=== PATIENT | female | born 1955 | race African-American/Black ===

== ENCOUNTER 2017-08-13 13:32 | Emergency (ER) | payer OTHER ==
[~2017-08-13] VITALS: Ht 167.6 cm; Wt 123.0 kg
[2017-08-13] MEDS ORDERED: FUROSEMIDE 40MG/4ML VIAL IV STA (14:38)
[2017-08-13] MEDS ORDERED: NITROGLYCERIN OINT 1GM/INCH UDPKT TD STA (14:38)
[2017-08-13 16:22] LABS: BASOPHILS % 0.6 % (0.0-2.0); HEMATOCRIT. 41.2 % (36.0-48.0); LYMPHOCYTES % 31.3 % (20.0-50.0); MEAN CORPUSCULAR HEMOGLOBIN 27.9 pg (28.0-32.0); MEAN CORPUSCULAR VOLUME 82.4 fL (81.0-99.0); MONOCYTES % 5.6 % (2.0-8.0); NEUTROPHILS % 61.5 % (40.0-76.0); PLATELET 196 x1000/uL (130-400); RED CELL DISTRIBUTION WIDTH 14.7 % (11.6-14.6)
[2017-08-13 16:30] LABS: PARTIAL THROMBOPLASTIN TIME 29.4 sec (23.4-31.0); PROTHROMBIN TIME 10.6 sec (9.4-11.6)
[2017-08-13 16:33] LABS: CHLORIDE 102 mEq/L (98-107)
[2017-08-13] MEDS ORDERED: POTASSIUM CHLORIDE 20MEQ TABLET SR PO ONE (17:30)
[2017-08-13 17:45] VITALS: BP 128/65
[2017-08-13] MEDS ORDERED: IOHEXOL-350 100 ML BOTTLE ONE (19:25)
== END 2017-08-13 20:55 | disposition short-term general hospital (02) ==
LOC: ER 15:58 → ENRESERV 16:33 → CANRESERV 16:33 → CANBEDREQ 19:52 → ER 20:55
DX: R07.89 Other chest pain (principal); I11.0 Hypertensive heart disease with heart failure; I50.9 Heart failure, unspecified; F41.9 Anxiety disorder, unspecified; E78.00 Pure hypercholesterolemia, unspecified
CPT/HCPCS: 36415; 71045; 71275; 80053; 83880; 84484; 85025; 85379; 85610; 85730; 93005; 96374; 99285; J1940; Q9967

== ENCOUNTER 2023-11-16 09:12 | Emergency (ER) | payer OTHER ==
[~2023-11-16] VITALS: Ht 167.6 cm; Wt 110.0 kg
[2023-11-16 09:24] VITALS: O2SAT 97
[2023-11-16 10:34] LABS: BASOPHILS % 0.5 % (0.0-2.0); EOSINOPHILS % 1.1 % (0.0-5.0); HEMATOCRIT. 41.2 % (36.0-48.0); HEMOGLOBIN. 13.4 g/dL (12.0-16.0); LYMPHOCYTES % 31.4 % (20.0-50.0); MEAN CORPUSCULAR HGB CONC 32.6 g/dL (31.0-37.0); MEAN CORPUSCULAR VOLUME 85.9 fL (81.0-99.0); MEAN PLATELET VOLUME 9.1 fl (7.4-10.4); MONOCYTES % 5.8 % (2.0-8.0); NEUTROPHILS % 61.2 % (40.0-76.0); PLATELET 190 x1000/uL (130-400); RED BLOOD CELL COUNT 4.79 mill/uL (4.2-5.4); RED CELL DISTRIBUTION WIDTH 16.2 % (11.6-14.6); WHITE BLOOD COUNT 5.8 x1000/uL (4.5-11.0)
[2023-11-16] MEDS: SODIUM CHLORIDE 0.9% 1,000 ML IV ONE (10:37)
[2023-11-16 10:43] LABS: PROTHROMBIN TIME 10.7 sec (9.6-11.0)
[2023-11-16 10:46] LABS: CALCIUM 9.2 mg/dL (8.7-10.4); CARBON DIOXIDE 29 mEq/L (21-32); CHLORIDE 106 mEq/L (98-107); POTASSIUM 3.6 mEq/L (3.5-5.1); SODIUM 139 mEq/L (136-145)
[2023-11-16 10:51] LABS: CREATININE 1.2 mg/dL (0.6-1.0); GLUCOSE 86 mg/dL (70-105); UREA NITROGEN BLOOD 10 mg/dL (9-23)
[2023-11-16 11:39] LABS: TROPONIN I HIGH SENSITIVITY 6 ng/L (3.0-34)
[2023-11-16 13:25] VITALS: BP 117/61; PULSE 60; RESP 18; TEMP 98
== END 2023-11-16 13:32 | disposition home or self-care (01) ==
LOC: ER 09:12
DX: R53.1 Weakness (principal); F17.200 Nicotine dependence, unspecified, uncomplicated; E78.00 Pure hypercholesterolemia, unspecified; I11.0 Hypertensive heart disease with heart failure; I50.9 Heart failure, unspecified
CPT/HCPCS: 99284; 96360; 71045; 80048; 83880; 85025; 85610; 84484; 36415; J7030